=== PATIENT | female | born 1945 | race Caucasian/White ===

== ENCOUNTER 2024-09-05 11:28 | Emergency (ER) | payer MEDICARE, SELFPAY ==
--- NOTE | ~2024-09-05 | CT_ITS ---
EXAMINATION: CT CERVICAL SPINE WITHOUT CONTRAST CLINICAL INFORMATION: Fall with posterior head strike. COMPARISON: None available. TECHNIQUE: Spiral CT imaging of the cervical spine performed in axial plane without contrast. Multiplanar reformatted images were constructed from the axial data set. This CT examination was performed using dose optimization techniques as appropriate, variously including the following: *Automated exposure control *Adjustment of mA and/or kV according to patient size (this includes techniques or standardized protocols for targeted exams where dose is matched to indication/reason for exam; i.e. extremities or head) *Use of iterative reconstruction technique FINDINGS: CORONAL ALIGNMENT: -There is a mild right convex scoliosis, likely positional. SAGITTAL ALIGNMENT: -There is straightening of the normal lordosis. -There is no traumatic subluxation. -There is a degenerative 2 mm anterolisthesis of C7 on T1. C1-C2 AND CRANIOCERVICAL JUNCTION: -Intact and aligned normally. There are degenerative changes in the anterior atlantoaxial joint. VERTEBRAL BODIES AND FACETS: -No fractures, compression deformity, traumatic subluxation, or suspicious bone lesion evident. -There is normal facet alignment bilaterally, without facet fracture. DISCS: -Moderate disc degeneration present C4-5, C5-6, and C6-7. CENTRAL CANAL: -No evidence of high-grade central canal narrowing or large disc herniation allowing for modality limitations. PREVERTEBRAL AND PARAVERTEBRAL SOFT TISSUES: -No prevertebral or paravertebral soft tissue edema, fluid collection, or swelling. -Thyroid is globally enlarged, likely with underlying nodules present. Largest discrete nodules seen by CT measures 1.3 cm and is located within the right sternal notch. LUNG APICES: -Minimal biapical scarring. Otherwise clear. No pneumothorax. CT/CT cervical spine wo IV con IMPRESSION: 1. No CT evidence of acute cervical spine fracture or injury. 2. Mild to moderate degenerative spondylosis of the cervical spine. 3. Multinodular goiter. Electronically signed by: Cholo Correa MD 09/05/2024 12:46 PM EDT
--- NOTE | ~2024-09-05 | CT_ITS ---
EXAMINATION: CT HEAD WITHOUT IV CONTRAST HISTORY: fall posterior head strike +laceration. TECHNIQUE: Unenhanced helical CT of the head was performed per standard departmental protocol. Coronal and sagittal reformats of the head were also evaluated. One or more of the following techniques was used for dose reduction: Automated exposure control, adjustment of the mA and/or kV according to patient size, use of iterative reconstruction technique. DLP: 863 mGy-cm COMPARISON: There are no prior studies for comparison. FINDINGS: BRAIN: There is mild prominence of the ventricular system and cortical sulci, consistent with atrophy. Scattered periventricular and subcortical white matter hypodensities are noted which are nonspecific, but often seen in the setting of small vessel ischemic disease. There is no mass effect or midline shift. No intra- or extra-axial fluid collections are identified. SINUSES: There is partial opacification of the right sphenoid sinus The mastoid air cells and middle ear cavities are well pneumatized. ORBITS: The visualized orbits are unremarkable. BONES/SOFT TISSUES: There is occipital soft tissue swelling. The calvarium is intact. No suspicious lytic or sclerotic lesions. CT/CT head/brain wo IV con IMPRESSION: Occipital soft tissue swelling. No evidence of intracranial hemorrhage or skull fracture. Electronically signed by: Trevor Kaur MD 09/05/2024 12:41 PM EDT
[2024-09-05 11:41] VITALS: BP 154/62; BP 154/68; PULSE 65; PULSE 70; RESP 18; TEMP 37.1; O2SAT 97; BMI 22.7
--- NOTE | 2024-09-05 11:58 | ED_ITS ---
HPI - Fall General Chief Complaint: Fall Stated Complaint: FALL,HEAD LAC,-LOC,+ MOD CCOLLAR PER EMS Time Seen by Provider: 09/05/24 11:46 Source: patient and EMS Mode of arrival: EMS Limitations: no limitations History of Present Illness ED Provider: MAAME GUTIÉRREZ PA-C HPI Narrative: 79-year-old female with pmhx significant for Parkinson's presents to the ED today via EMS for evaluation s/p mechanical fall prior to arrival in ED. She states that she was descending a ramp outside, attempting to pick donnelly when she lost her balance causing her to fall down the incline. She reports falling backwards and striking the back of her head on the ground. Denies any LOC. she can not recall who contacted EMS. On their arrival, she was assisted off of the ground and onto the stretcher. She was not on any anticoagulation. She denies any preceding symptoms of dizziness, chest pain, palpitations. Noted to have bleeding to back of her head reporting localized pain around this area. Denies any neck pain. Denies any pain or obvious injury elsewhere on her body. Related Data Allergies Allergy/AdvReac Type Severity Reaction Status Date / Time cephalexin [From Keflex] Allergy Rash Verified 09/05/24 11:48 Review of Systems 2 Review of Systems: Yes all other systems are reviewed and are negative PMFSH Past Medical History Attestation statement: The following information was validated with the patient. Source: old records reviewed and nursing notes reviewed Social History Social History Advance Directives: No Advance Directives Information Provided: Yes Physical Exam 2 Vital Signs: Vital Signs: Last Vital Signs Temp 98.0 F 09/05/24 14:27 Pulse 62 09/05/24 14:27 Resp 20 09/05/24 14:27 BP 144/60 H 09/05/24 14:27 Pulse Ox 96 09/05/24 14:27 O2 Del Method Room Air 09/05/24 14:27 BMI result Body Mass Index 22.7 hypertensive, vital signs stable General: Well appearing, in no acute distress. Skin: +see below Head: +irregular laceration noted to occipital region. No exposed bone. Slow bleeding noted, no pulsations. No palpable skull fracture. Small underlying scalp hematoma. No sweeney sign. No raccoon eyes. EENT: Hearing is intact b/l. Conjunctiva clear. PERRLA. EOM intact. Moist mucous membranes.? Neck: No midline c spine tenderness or step off deformity. FROM intact to c spine without pain. Cardiac: Chest wall symmetric. RRR Lungs: Normal respiratory effort without accessory muscle use. CTA bilaterally Abdomen: Soft, non-tender, non-distended. No rebound tenderness or guarding Back: No midline spinous or paraspinal tenderness. No step off deformity. pelvis stable. Ext: Upper and lower extremities atraumatic, without tenderness, deformity, swelling or erythema Neuro: AOx3. Normal speech. exam nonfocal. Resting tremor noted to bilateral upper extremity. Strength 5/5 intact throughout. Sensation intact to light touch. NV intact distally. Psych: Appropriate mood and affect. Responds appropriately to questions. Course Course Course Narrative: Imaging unremarkable. Patient is stable. Well-appearing. Laceration repaired with 11 violette. Advised to either follow up with PCP or return to the ED for removal in 7-10 days. tdap booster updated. Patient has remained stable throughout ED visit today. Discussed worrisome signs and symptoms and when to return to the ED. All questions answered at this time. Patient is agreeable with disposition and stable for discharge. Medications Administered Discontinued Medications Generic Name Dose Route Start Last Admin Trade Name Freq PRN Reason Stop Dose Admin Diazepam 2 mg 09/05/24 12:36 09/05/24 12:46 Diazepam 2 Mg Tablet PO 09/05/24 12:37 2 mg ONCE ONE Administration Diphtheria/Tetanus/Acell Pertussis 0.5 ml 09/05/24 13:57 09/05/24 14:23 Diphth,Pertus(Acell),Tet Adult 0.5 Ml Syringe IM 09/05/24 13:58 0.5 ml .ONCE ONE Administration Procedures Laceration Laceration 1: Site: scalp Size (cm): 3.5 (Longer section of T: 3.5 cm. [place] section of T: 2 cm.) Description: other (T-shaped) Depth: simple, single layer Pre-repair: wound explored and irrigated extensively Skin layer closed with: other ([place]rombie) Number of sutures: 11 Medical Decision Making Medical Decision Making MDM Narrative: 79-year-old female with pmhx significant for Parkinson's presents to the ED today via EMS for evaluation s/p mechanical fall prior to arrival in ED. She was walking backwards down an incline and lost balance and fell backwards, striking the back of her head. No LOC, no dizziness. Denies neck or back pain. Denies thinner use. Afebrile. AOx4. GSC 15. Normal speech. Strength 5/5 intact throughout. Sensation intact to light touch. Head and C-spine CT without contrast demonstrated soft tissue swelling with no evidence of ICH, skull fracture, or c-spine fracture. Patient unsure of last tetanus vaccination so will be administered booster today. Differential diagnosis consists of laceration, abrasion, concussion, ICH, skull fracture Plan for CT head and c spine without contrast, diazepam, laceration repair, tetanus booster vaccination, re-evaluation Differential Diagnosis Differential Diagnoses: The differential diagnosis associated with the presentation includes as above. Admission/Observation not indicated. Independent Interpretation I performed an independent interpretation of an: CT Scan Interpretation: ct head/brain without bleed or skull fracture ct cervical spine without fracture Radiology Impression Discussion of test interpretation with radiology: I have reviewed the radiologist's reading. Radiologist Impression: Ordering Physician: Maame Gutiérrez Date of Service: 09/05/24 Procedure(s): CT head/brain wo IV con Accession Number(s): [id number] cc: Heidi Marcelino MD; Maame Gutiérrez~ Report Number: [id number]: Total DLP = 663.00 mGy-cm EXAMINATION: CT HEAD WITHOUT IV CONTRAST HISTORY: fall posterior head strike +laceration. TECHNIQUE: Unenhanced helical CT of the head was performed per standard departmental protocol. Coronal and sagittal reformats of the head were also evaluated. One or more of the following techniques was used for dose reduction: Automated exposure control, adjustment of the mA and/or kV according to patient size, use of iterative reconstruction technique. DLP: 863 mGy-cm COMPARISON: There are no prior studies for comparison. FINDINGS: BRAIN: There is mild prominence of the ventricular system and cortical sulci, consistent with atrophy. Scattered periventricular and subcortical white matter hypodensities are noted which are nonspecific, but often seen in the setting of small vessel ischemic disease. There is no mass effect or midline shift. No intra- or extra-axial fluid collections are identified. SINUSES: There is partial opacification of the right sphenoid sinus The mastoid air cells and middle ear cavities are well pneumatized. ORBITS: The visualized orbits are unremarkable. BONES/SOFT TISSUES: There is occipital soft tissue swelling. The calvarium is intact. No suspicious lytic or sclerotic lesions. CT/CT head/brain wo IV con IMPRESSION: Occipital soft tissue swelling. No evidence of intracranial hemorrhage or skull fracture. Electronically signed by: Trevor Kaur MD 09/05/2024 12:41 PM EDT RP Ordering Physician: Maame Gutiérrez Date of Service: 09/05/24 Procedure(s): CT cervical spine wo IV con Accession Number(s): [id number] cc: Heidi Marcelino MD; Maame Gutiérrez~ Report Number: [id number]: Total DLP = 199.00 mGy-cm EXAMINATION: CT CERVICAL SPINE WITHOUT CONTRAST CLINICAL INFORMATION: Fall with posterior head strike. COMPARISON: None available. TECHNIQUE: Spiral CT imaging of the cervical spine performed in axial plane without contrast. Multiplanar reformatted images were constructed from the axial data set. This CT examination was performed using dose optimization techniques as appropriate, variously including the following: *Automated exposure control *Adjustment of mA and/or kV according to patient size (this includes techniques or standardized protocols for targeted exams where dose is matched to indication/reason for exam; i.e. extremities or head) *Use of iterative reconstruction technique FINDINGS: CORONAL ALIGNMENT: -There is a mild right convex scoliosis, likely positional. SAGITTAL ALIGNMENT: -There is straightening of the normal lordosis. -There is no traumatic subluxation. -There is a degenerative 2 mm anterolisthesis of C7 on T1. C1-C2 AND CRANIOCERVICAL JUNCTION: -Intact and aligned normally. There are degenerative changes in the anterior atlantoaxial joint. VERTEBRAL BODIES AND FACETS: -No fractures, compression deformity, traumatic subluxation, or suspicious bone lesion evident. -There is normal facet alignment bilaterally, without facet fracture. DISCS: -Moderate disc degeneration present C4-5, C5-6, and C6-7. CENTRAL CANAL: -No evidence of high-grade central canal narrowing or large disc herniation allowing for modality limitations. PREVERTEBRAL AND PARAVERTEBRAL SOFT TISSUES: -No prevertebral or paravertebral soft tissue edema, fluid collection, or swelling. -Thyroid is globally enlarged, likely with underlying nodules present. Largest discrete nodules seen by CT measures 1.3 cm and is located within the right sternal notch. LUNG APICES: -Minimal biapical scarring. Otherwise clear. No pneumothorax. CT/CT cervical spine wo IV con IMPRESSION: 1. No CT evidence of acute cervical spine fracture or injury. 2. Mild to moderate degenerative spondylosis of the cervical spine. 3. Multinodular goiter. Electronically signed by: Cholo Correa MD 09/05/2024 12:46 PM EDT RP External Record Review External record reviewed: Inpatient record Social Determinants Patient?s care significantly limited by Social Determinants of Health including: Other Social Determinant of Health Critical Care Time Critical Care Time Critical Care Time: No Discharge Plan Discharge Clinical Impression: Fall, Laceration of scalp Patient Disposition: Home, Self-Care Instructions: Laceration (ED), Staple Care (ED) Additional Instructions: You were evaluated in the ED today after a mechanical fall. The CT scan of your head shows soft tissue swelling around your laceration, there is no intracranial bleed or skull fracture. The CT scan of your neck shows degenerative changes without acute fracture or injury. You were noted to have quite a large laceration to the back of your head. This was repaired with 11 violette today. Your tetanus vaccination was also updated and will be valid for 5-10 years. Please keep the area surrounding the laceration clean and dry. Do not get the area wet for 24 hours. After 24 hours, you may clean the area with a nonscented soap and pat to dry. Please keep the area out of the sunlight for the next 6 months to help prevent scarring.? If you develop redness or swelling at the site of your laceration or note any discharge/ fluid coming from the laceration, please come back to the ER for a wound check. I recommend you take 600mg ibuprofen every 6 hours or Tylenol 650mg every 6 hours as needed for pain. If needed, you can alternate these medications so that you take one medication every 3 hours. For example, at noon take ibuprofen, then at 3pm take Tylenol, then at 6pm take ibuprofen. Please follow up with your primary care physician in 7-10 days for staple removal. You may also return to the ER or another urgent care facility for this service. Return to the Emergency Department if you experience discharge from your laceration, redness around your laceration, warmth around your laceration, fever, vomiting, numbness, tingling, or any other concerning symptoms. In the case of an emergency call 911. Referrals: Heidi Marcelino MD [Primary Care Provider] - Interventions: ED Discharge Assessment Last Done: 09/05/24 14:27 Discharge Date/Time: 09/05/24 14:28 Print Language: Lao
[2024-09-05] MEDS: diazePAM 2 MG TABLET PO (12:46)
[2024-09-05 13:37] VITALS: BP 144/60; PULSE 62; RESP 20; TEMP 36.7; O2SAT 96
[2024-09-05] MEDS: Diphth,Pertus(ACell),Tet Adult 0.5 ML SYRINGE IM (14:23)
[2024-09-05 14:27] VITALS: BP 144/60; PULSE 62; RESP 20; TEMP 36.7; O2SAT 96
--- OUTSIDE RECORDS SUMMARY | 2024-09-05 14:52 | XMS_ITS | Clinical Summary ---
Author Organization [address] Address [address] [place] [phone] Phone Care Team Providers Care Railroad Track Inspector Name Role Phone Heidi Restrepo MD Primary Care Prov ider Allergies Active Allergy Reactions Criticality Noted Date Comments Alendronate Sodium Other 10/29/2012 Abdominal pain Amoxicillin Rash 07/26/2010 Cephalexin Monohydrate Hives 04/19/2008 Ciprofloxacin Itching Medium 11/14/2007 Sulfamethoxazole-Trimethopri m Rash Medium 11/14/2007 Tetracycline 03/08/2016 WILL INTERACT W/ SORIATANE Medications lansoprazole (PREVACID) [address] capsule Take 1 Capsule by mouth daily. Active traZODone (DESYREL) 50 mg tablet TAKE 1 TABLET BY MOUTH EVERYDAY AT BEDTIME 03/31/2023 Active acitretin (SORIATANE) 10 mg capsule Take 10 mg by mouth. 1-5 tabs daily PRN Active hydrocortisone (WESTCORT) 0.2 % cream Apply to affected area twice daily 06/13/2012 Active pramipexole (MIRAPEX) 0.5 mg tablet TAKE 1 TABLET BY MOUTH 3 TIMES A DAY WITH MEALS FOR 90 DAYS Active Restasis 0.05 % ophthalmic emulsion instill 1 drop both eyes twice a day 01/05/2024 Active Active Problems Problem Noted Date Diagnosed Date Gastroesophageal reflux disease 05/12/2023 Assessment & Plan (06/13/2024 2:08 PM EST): Currently on lansoprazole every day. Complains of epigastric pain after her neurologist changed her Parkinson's medication. She is following with GI. Will continue same medication. 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 Recurrent UTI (urinary tract infection) 01/28/20 14 RBBB 02/19/2013 Overview (04/08/2024): Noted on 2007 EKG, asymptomatic, again noted 2012 ER EKG Osteoporosis 11/11/2011 Overview (04/08/2024): Femoral neck T score -3.1 (10/20/2011) Lumbar spine - T score -2.2 Started on alendronate but caused abd pain Anal fissure 01/29/2008 Psoriasis and similar disorders 07/25/2006 Overview (04/08/2024): [facility] derm Encounters Date Type Department Care Team Description 08/05/2024 10:00 AM EDT Consult Adult Medicine [address] [phone] Heidi Reid MD Preop cardiovascular exam (Primary Dx) 06/13/2024 1:00 PM EST Office Visit Adult Medicine [address] [phone] Heidi Reid MD Hypercholesterolemia (Primary Dx); Gastroesophageal reflux disease, unspecified whether esophagitis present; Parkinson's disease with fluctuating manifestations, unspecified whether dyskinesia present (CMS/HCC V24, CMS/HCC V28); Encounter for screening involving social determinants of health (SDoH); Screening for depression from Last 3 Months Immunizations Name Administration Dates Next Due PPD Test 01/29/2007 Pneumococcal polysaccharide 23 valent (Pneumovax 23) 2yo and older 03/18/2009 Td Tetanus diptheria (Tdvax) 7yo and older 07/04 Tdap Tetanus diptheria acell ular pertussis (Boostrix; Adacel) 7yo and older 01/31/2007 Zoster Live 04/23/2008 Surgical History Surgery Date Site/Laterality Comments BREAST BIOPSY Right PROCEDURE: BX BREAST; PERC NEEDLE CORE W/IMAG GUID; COMMENT: b9 UPPER GASTROINTESTINAL ENDOSCOPY 03/08/2016 PROCEDURE: NC UPPER GI ENDOSCOPY PERFORMED; COMMENT: Normal endoscopic findings on when necessary H2 herson treatment. COLONOSCOPY 03/08/2016 PROCEDURE: HISTORICAL COLONOSCOPY; COMMENT: Normal. Medical History Medical History Date Comments Other psoriasis and similar disorders 07/25/2006 DX:Other psoriasis and similar disorders Rbbb 02/19/2013 DX:RBBB Gastroesophageal reflux disease 05/12/2023 DX:Gastroesophageal reflux disease Family History Medical History Relation Name Comments Throat cancer Father Macular degeneration Mother Breast cancer Sister Blindness Neg Hx Cataracts Neg Hx Glaucoma Neg Hx Strabismus Neg Hx Relation Name Status Comments Father Mother Sister Social History Tobacco Use Types Packs/Day Years Used Date Smoking Tobacco: Former Cigarettes 0.3 2 1 05/11/1963 - 1966 Smokeless Tobacco: Never Tobacco Cessation:Counseling Given: Not Answered Alcohol Use Standard Drinks/Week Comments No 0 (1 standard drink = 0.6 oz pur e alcohol) Housing Instability Answer Date Recorde d Are you worried that in the next 2 months you may not have stable housing? No 06/13/2024 Food Access & Nutrition Answer Date Rec orded Do you have access to a vari ety of food including fruits and vegetables? Yes 06/13/2024 Access to Healthcare Answer Date Record ed Within the last 3 months, ho w many times did you visit the emergency department for your medical care? 0 06/13/2024 Health Literacy Answer Date Recorded How often do you need to hav e someone help you when you read instructions, pamphlets, or other written material from your doctor or pharmacy? Never 06/13/2024 Caregiver: How often do you need to have someone help you when you read instructions, pamphlets, or other written material from your doctor or pharmacy? Not on file 06/13/2024 Financial Risk Answer Date Recorded How hard is it for you to pa y for the very basics like food, housing, medical care, and air conditioning / heating? Not very hard 06/13/2024 Transportation Answer Date Recorded Has the lack of transportati on kept you from meetings, work, or from getting things needed for daily living? No Has the lack of transportati on kept you from medical appointments or from getting medications? No 06/13/2024 Social Isolation Answer Date Recorded How often do you feel lonely or isolated from th ose around you? Never 06/13/2024 Food Risk Answer Date Recorded Within the past 12 months we worried whether our food would run out before we got money to buy more. Never true 06/13/2024 Within the past 12 months th e food we bought just didn't last and we didn't have money to get more. Never true 06/13/2024 Education Answer Date Recorded Do you think completing more education or training, like finishing a GED, going to college, or learning a trade, would be helpful for you? No 06/13/2024 Employment and Income Answer Date Recor ded During the last four weeks, have you been actively looking for work? No 06/13/2024 Living Situation Answer Date Recorded What is your living situation? 0 06/13/2024 Comments No Sex and Gender Information Value Date Recorded Sex Assigned at Not on file Legal Sex Female 4:03 AM EST Gender Identity Not on file Sexual Orientation Not on file Obstetrics History Last Filed Vital Signs Vital Sign Reading Time Taken Comments Blood Pressure 112/58 08/05/2024 9:59 AM EDT Pulse 62 08/05/2024 9:59 AM EDT Temperature 36.2 ??C (97.1 ??F) 08/05/2024 9:59 AM ED T Respiratory Rate 14 08/05/2024 9:59 AM EDT Oxygen Saturation - - Inhaled Oxygen Concentration - - Weight 56.2 kg (124 lb) 08/05/2024 9:59 AM EDT Height 154.9 cm (5' 1 ) 2022 9:37 AM EDT Body Mass Index 23.43 2022 9:37 AM EDT Plan of Treatment Upcoming Encounters Date Type Department Care Team (Late st Contact Info) Description 12/13/2024 1:00 PM EDT Office Visit Adult Medicine [address] [phone] Heidi Restrepo MD [address] [place] [phone] Health Maintenance Due Date Last Done Comments Zoster Vaccines (2 of 3) 06/18/2008 04/23/2008 Pneumococcal Vaccine: 50+ Years (2 of 2 - PCV) 03/18/2010 03/18/2009 RSV Immunization Adult Patients (1 - 1-dose 75+ series) 2021 Cholesterol Screening (Lipid Panel) 04/10/2022 Medicare Annual Wellness Visit 04/10/2022 COVID-19 Vaccine (4 - 2023-2 5 season) 2024 03/22/2021, 08/03/2020, 07/05/2020 Depression Screening 06/13/2025 06/13/2024 Falls Risk Assessment 06/13/2025 06/13/2024 Social Influencers of Health Screening 06/13/2025 06/13/2024 DTaP,Tdap,and Td Vaccines (3 - Td or Tdap) 07/04/2029 07/04/2019, 01/31/2007 Osteoporosis Screening (Bone Density Screening) 04/14/2032 04/14/2022 Hepatitis C Screening Completed 09/04/2013 HIB Vaccines Aged Out No longer eligi ble based on patient's age to complete this topic HPV Vaccines Aged Out No longer eligi ble based on patient's age to complete this topic Hepatitis A Vaccines Aged Out No long er eligible based on patient's age to complete this topic Hepatitis B Vaccines Aged Out No long er eligible based on patient's age to complete this topic IPV Vaccines Aged Out No longer eligi ble based on patient's age to complete this topic Influenza Vaccine Discontinued MMR Vaccines Aged Out No longer eligi ble based on patient's age to complete this topic Meningococcal ACWY Vaccine Aged Out N o longer eligible based on patient's age to complete this topic Meningococcal B Vaccine Aged Out No l onger eligible based on patient's age to complete this topic RSV Immunization Patients Under 20 months Aged Out No longer eligible based on patient's age to complete this topic Varicella Vaccines Aged Out No longer eligible based on patient's age to complete this topic Procedures Procedure Name Priority Date/Time Associated Diagnosis Comments DXA BONE DENSITY STUDY 1+ SITS AXIAL SKEL Routine 04/14/2022 2:53 PM EST Asymptomatic menopausal state HEPATITIS C SCREENING Routine 09/04/2013 from Last 3 Months or Most Recently Relevant to Health Maintenance Results * DXA BONE DENSITY STUDY 1+ SITS AXIAL SKEL (04/14/2022 2:53 PM EST) Anatomical Region Laterality Modality Bone Densitometr y 04/19/2021 12:0 0 PM EST Narrative 04/14/2022 5:20 PM EST BONE DENSITY ? Lumbar Spine T-score is -2.7 ?? (SD relative to 20-29 y/o adult) Z-score is -0.3 ??(SD relative to age matched peers) This is consistent with osteoporosis by criteria defined by the WHO. Left Hip T-score is -3.2 Z-score is -1.1 This is consistent with osteoporosis by criteria defined by the WHO. Comparison exam(s): significant decrease in bone density of ??hip and lumbar spine when compared to most recent bone density examination ?? Confidence level is +/-95%. Impression: Based on the World Health Organization criteria, Maday Yun should be classified as having osteoporosis. The [facility] Department of Internal Medicine recommends using National Osteoporosis Foundation (NOF) guidelines in treatment decisions related to osteoporosis. NOF guidelines suggest considering treatment for postmenopausal women and men aged 50 or older presenting with the following: History of hip or vertebral fracture. T-score less than or equal to -2.5 (DXA) at the femoral neck, total hip, or spine, after appropriate evaluation to exclude secondary causes. Low bone mass (T-score between -1.0 and -2.5 at the femoral neck or spine) AND a 10-year probability of a hip fracture greater than or equal to 3% OR a 10-year probability of a major osteoporosis-related fracture greater than or equal to 20% based on the [place]-adapted WHO algorithm Please note that all treatment decisions require clinical judgment and consideration of individual patient factors, including patient preferences, co-morbidities, previous drug use, risk factors not captured in the FRAX model (e.g., frailty, falls, vitamin D deficiency, increased bone turnover, interval significant decline in bone density) and possible under- or over-estimation of fracture risk by FRAX. Procedure Note Stefano Snowden MD - 02/05/2024 BONE DENSITY Lumbar Spine T-score is -2.7 (SD relative to 20-29 y/o adult) Z-score is -0.3 (SD relative to age matched peers) This is consistent with osteoporosis by criteria defined by the WHO. Left Hip T-score is -3.2 Z-score is -1.1 This is consistent with osteoporosis by criteria defined by the WHO. Comparison exam(s): significant decrease in bone density of hip andlumbar spine when compared to most recent bone density examination Confidence level is +/-95%. Impression: Based on the World Health Organization criteria, Maday Yun shouldbe classified as having osteoporosis. The [facility] Department of Internal Medicine recommendsusing National Osteoporosis Foundation (NOF) guidelines in treatmentdecisions related to osteoporosis. NOF guidelines suggest consideringtreatment for postmenopausal women and men aged 50 or older presentingwith the following: History of hip or vertebral fracture. T-score less than or equal to -2.5 (DXA) at the femoral neck, total hip,or spine, after appropriate evaluation to exclude secondary causes. Low bone mass (T-score between -1.0 and -2.5 at the femoral neck or spine)AND a 10-year probability of a hip fracture greater than or equal to 3% ORa 10-year probability of a major osteoporosis-related fracture greaterthan or equal to 20% based on the [place]-adapted WHO algorithm Please note that all treatment decisions require clinical judgment andconsideration of individual patient factors, including patientpreferences, co-morbidities, previous drug use, risk factors not capturedin the FRAX model (e.g., frailty, falls, vitamin D deficiency, increasedbone turnover, interval significant decline in bone density) and possibleunder- or over-estimation of fracture risk by FRAX. Inge TERRY IMRozina DXA PROCEDURES Final Result * Hepatitis C Screening (09/04/2013) Pathologist [facility] Hepatitis C Screening abstracted Historical Provider HEALTH MAINTENANCE Final Result from Last 3 Months or Most Recently Relevant to Health Maintenance Insurance [employer] [employer] - [place] MEDIC[place] Care Teams Railroad Track Inspector Relationship Specialty Start Date End Date Heidi Restrepo MD [address] [place] [phone] PCP - General Internal Medicine 12/07/21
== END 2024-09-05 14:28 | disposition home or self-care (01) ==
PROVIDERS: Emergency Provider Emergency Medicine; PCP Internal Medicine
DX: S01.01XA Laceration without foreign body of scalp, initial encounter (principal); R51.9 Headache, unspecified; M54.2 Cervicalgia; W19.XXXA Unspecified fall, initial encounter; Y93.9 Activity, unspecified; Y92.9 Unspecified place or not applicable; Y99.8 Other external cause status; Z23 Encounter for immunization
CPT/HCPCS: 12032; 70450; 72125; 90471; 90715; 99283; 99284

== ENCOUNTER → 2024-09-05 11:57 | Outpatient (BNV) | payer MEDICARE, SELFPAY | PROVIDERS: Emergency Provider Emergency Medicine; PCP Internal Medicine; Visit Provider Radiology Diagnostic Radiology | DX: M47.812 Spondylosis without myelopathy or radiculopathy, cervical region (principal); E04.2 Nontoxic multinodular goiter; R22.0 Localized swelling, mass and lump, head | CPT/HCPCS: 70450; 72125 ==